=== PATIENT | female | born 1955 | race Caucasian/White ===

== ENCOUNTER → 2019-03-27 08:29 | Outpatient (CLI) | payer OTHER, SELFPAY ==
[2019-03-27 09:13] LABS: Add Manual Diff / Slide Review NO; Basophils Absolute Auto 100 /uL (0-100); Basophils Percent Auto 2.2 % (0-2); Eosinophils Absolute Auto 100 /uL (0-450); Eosinophils Percent Auto 4.1 % (2-4); Hematocrit 40.7 % (36-46); Hemoglobin 13.7 g/dL (12.0-16.0); Lymphocytes Absolute Auto 1800 /uL (1100-4500); Lymphocytes Percent Auto 52.7 % (25-40); Mean Corpuscular HGB Conc 33.6 % (30-36); Mean Corpuscular Hemoglobin 32.6 PG (26-34); Monocytes Absolute Auto 200 /uL (0-900); Monocytes Percent Auto 6.7 % (3-14); Neutrophils Absolute Auto 1100 /uL (1500-7000); Neutrophils Percent Auto 34.3 % (50-75); Platelet Count 250 X10^3/uL (150-400); Red Cell Distribution Width 14.3 % (11.6-14.8); White Blood Cell Count 3.3 X10^3/uL (4.5-11.0)
[2019-03-27 09:24] LABS: Hemoglobin A1C% w Est Avg Glu 5.2 % (4.0-6.0)
[2019-03-27 09:39] LABS: Alanine Aminotransferase 19 IU/L (9-52); Albumin 4.5 g/dL (3.5-5.0); Albumin Globulin Ratio 1.5 (1.0-2.8); Alkaline Phosphatase 78 U/L (38-126); Aspartate Aminotransferase 36 IU/L (14-36); BUN Creatinine Ratio 22.9 (6-22); Bilirubin Total 0.8 mg/dL (0.2-1.3); Blood Urea Nitrogen 16 mg/dL (7-17); Calcium 9.5 mg/dL (8.4-10.2); Carbon Dioxide 32 mmol/L (22-32); Chloride 102 mmol/L (98-107); Cholesterol 233 mg/dL (140-199); Estimated Glomerular Filt Rate > 60.0 mL/min (>60); Globulin 3.1 g/dL (1.7-4.1); Glucose 96 mg/dL (80-110); HDL Cholesterol 86 mg/dL (40-60); HEMOLYSIS < 15 (0-50); LDL Cholesterol Calculated 135 mg/dL (<100); Potassium 4.3 mmol/L (3.4-5.1); Sodium 139 mmol/L (137-145); Total Protein 7.6 g/dL (6.3-8.2); Triglycerides 59 mg/dL (35-150)
[2019-03-27 09:53] LABS: Vitamin D 25 Hydroxy (D3) 50.1 ng/mL (30.0-100.0)
[2019-03-27 10:12] LABS: Ferritin 33.1 ng/mL (11.1-264)
[2019-03-27 10:14] LABS: TSH w/ Reflex to FT4 2.76 uIU/mL (0.47-4.68)
== END ==
PROVIDERS: Visit Provider Internal Medicine
DX: Z13.220 Encounter for screening for lipoid disorders (principal); L65.9 Nonscarring hair loss, unspecified; Z87.42 Personal history of other diseases of the female genital tract; Z86.010 Personal history of colon polyps; M85.80 Other specified disorders of bone density and structure, unspecified site
CPT/HCPCS: 36415; 80053; 80061; 82306; 82728; 83036; 84443; 85025

== ENCOUNTER → 2020-01-21 08:00 | Outpatient (CLI) | payer MEDICARE, OTHER, SELFPAY ==
[2020-01-21 10:23] LABS: Add Manual Diff / Slide Review NO; Basophils Absolute Auto 100 /uL (0-100); Eosinophils Absolute Auto 300 /uL (0-450); Hematocrit 41.6 % (36-46); Lymphocytes Absolute Auto 1800 /uL (1100-4500); Lymphocytes Percent Auto 49.2 % (25-40); Mean Corpuscular HGB Conc 33.7 % (30-36); Mean Corpuscular Hemoglobin 32.6 PG (26-34); Mean Corpuscular Volume 96.8 fL (80-100); Monocytes Absolute Auto 200 /uL (0-900); Monocytes Percent Auto 6.4 % (3-14); Neutrophils Absolute Auto 1300 /uL (1500-7000); Neutrophils Percent Auto 35.4 % (50-75); Platelet Count 254 X10^3/uL (150-400); Red Cell Distribution Width 14.6 % (11.6-14.8); White Blood Cell Count 3.6 X10^3/uL (4.5-11.0)
[2020-01-21 10:44] LABS: Alanine Aminotransferase 26 IU/L (<35); Albumin 4.5 g/dL (3.5-5.0); Albumin Globulin Ratio 1.5 (1.0-2.8); Alkaline Phosphatase 89 U/L (38-126); Aspartate Aminotransferase 44 IU/L (14-36); BUN Creatinine Ratio 17.7 (6-22); Bilirubin Total 0.8 mg/dL (0.2-1.3); Blood Urea Nitrogen 11 mg/dL (7-17); Calcium 9.8 mg/dL (8.4-10.2); Carbon Dioxide 31 mmol/L (22-32); Chloride 103 mmol/L (98-107); Cholesterol 232 mg/dL (140-199); Estimated Glomerular Filt Rate > 60.0 mL/min (>60); Globulin 3.1 g/dL (1.7-4.1); Glucose 96 mg/dL (80-110); HDL Cholesterol 94 mg/dL (40-60); HEMOLYSIS < 15 (0-50); LDL Cholesterol Calculated 126 mg/dL (<100); Potassium 4.6 mmol/L (3.4-5.1); Sodium 140 mmol/L (137-145); Total Protein 7.6 g/dL (6.3-8.2); Triglycerides 58 mg/dL (35-150)
[2020-01-21 11:13] LABS: Thyroid Stimulating Hormone 1.26 uIU/mL (0.47-4.68)
== END ==
PROVIDERS: PCP Internal Medicine
DX: Z00.00 Encounter for general adult medical examination without abnormal findings (principal); R53.83 Other fatigue; M85.80 Other specified disorders of bone density and structure, unspecified site
CPT/HCPCS: 36415; 80053; 80061; 84443; 85025

== ENCOUNTER → 2020-01-28 08:16 | Outpatient (CLI) | payer MEDICARE, OTHER, SELFPAY ==
--- NOTE | 2020-01-28 | DI.MG.S_ITS ---
BILATERAL DIGITAL SCREENING MAMMOGRAM 3D/2D WITH CAD WITH AUGMENTATION: 01/28/2020 CLINICAL: Routine screening. Family history of breast cancer. Comparison is made to exams dated: [place] [facility] [place] [facility], and [place] [facility] [place] There are scattered fibroglandular elements in both breasts. Current study was also evaluated with a Computer Aided Detection (CAD) system. Bilateral breast implants are stable. No significant masses, calcifications, or other findings are seen in either breast. There has been no significant interval change. IMPRESSION: NEGATIVE There is no mammographic evidence of malignancy. A 1 year screening mammogram is recommended. This exam was interpreted at Station ID: [id number]. NOTE: For mammograms, a report in lay terms will be sent to the patient. Approximately 15% of breast malignancies will not be visualized mammographically. In the management of a palpable breast mass, a negative mammogram must not discourage biopsy of a clinically suspicious lesion. Electronically Signed By: Savannah dubois/sena:01/28/2020 09:04:53 copy to: CHRIS NOBLE JR, M.D. copy to: KRISTINA FIERRO letter sent: Normal Exam ACR BI-RADS Category 1: Negative 3341F
== END ==
PROVIDERS: PCP Internal Medicine; Referring Provider Family Medicine; Visit Provider Family Medicine
DX: Z12.31 Encounter for screening mammogram for malignant neoplasm of breast (principal); Z80.3 Family history of malignant neoplasm of breast
CPT/HCPCS: 77063; 77067

== ENCOUNTER → 2020-04-14 16:25 | Outpatient (CLI) | payer MEDICARE, OTHER, SELFPAY ==
[2020-04-14 17:31] LABS: BUN Creatinine Ratio 26.5 (6-22); Blood Urea Nitrogen 18 mg/dL (7-17); Carbon Dioxide 29 mmol/L (22-32); Chloride 102 mmol/L (98-107); Estimated Glomerular Filt Rate > 60.0 mL/min (>60); Glucose 104 mg/dL (80-110); HEMOLYSIS < 15 (0-50); Sodium 135 mmol/L (137-145)
[2020-04-14 17:45] LABS: Free T4, Direct Thyroxine 1.02 ng/dL (0.78-2.19)
[2020-04-14 17:59] LABS: Thyroid Stimulating Hormone 2.87 uIU/mL (0.47-4.68)
== END ==
PROVIDERS: PCP Internal Medicine; Referring Provider Physician Assistant; Visit Provider Physician Assistant
DX: R00.2 Palpitations (principal); I49.3 Ventricular premature depolarization
CPT/HCPCS: 36415; 80048; 83735; 84439; 84443

== ENCOUNTER → 2020-09-08 15:43 | Outpatient (CLI) | payer MEDICARE, OTHER, SELFPAY ==
[2020-09-08 17:12] LABS: Erythrocyte Sedimentation Rate 8 MM/HR (0-20)
[2020-09-08 17:41] LABS: Ferritin 42 ng/mL (11-264)
[2020-09-11 02:10] LABS: ANA Screen, IFA Negative (.)
== END ==
PROVIDERS: PCP Internal Medicine; Referring Provider Physician Assistant Medical; Visit Provider Physician Assistant Medical
DX: L65.9 Nonscarring hair loss, unspecified (principal)
CPT/HCPCS: 36415; 82728; 85651; 86038

== ENCOUNTER → 2020-09-15 14:52 | Outpatient (CLI) | payer MEDICARE, OTHER, SELFPAY ==
--- NOTE | 2020-09-15 14:53 | DI.ECHO.S_ITS ---
[place] [facility] +---------+ : : [address] [place] [address] : : : : [id number] : : : : Phone: [phone]---------+ Echocardiogram Report + + :Name: YOMI GRIFFITHS HStudy Date: 09/15/2020 Height: 67 in : :[facility] ReadingLocation: Weight: 125 lb : : Gender: Female BSA: 1.7 m2 : :: 1955 Age: 64 yrs BP: 128/62 mmHg: :Reason For Study: Palpitations : :Ordering Physician: CABRERA, : :MILLY Griffith Performed By: Holger Candelario : :Referring: MILLY REES : + + Interpretation Summary The ejection fraction is estimated to be 60-65%. There is no significant valvular heart disease. Procedure: A two-dimensional transthoracic echocardiogram with color flow and Doppler was performed. The study quality was technically adequate. There is no prior echocardiogram noted for this patient. The patient was in sinus rhythm with heart rates between 73-88 bpm during the exam. Left Ventricle: The left ventricle is normal in size and wall thickness. Left ventricular systolic function is normal. The ejection fraction is estimated to be 60-65%. There are no focal wall motion abnormalities. Diastolic function could not be accurately assessed due to contradictory data. Right Ventricle: The right ventricle is normal in size and function. Atria: Both atria are normal in size. There is no Doppler evidence for an interatrial shunt. Mitral Valve: The mitral valve is normal in structure but abnormal in function. There is no mitral regurgitation noted. Aortic Valve: The aortic valve is grossly normal. No aortic regurgitation is present. Tricuspid Valve: The tricuspid valve is normal in structure and function. There is trace tricuspid regurgitation. Pulmonary artery pressures cannot be estimated because of the lack of a measurable TR jet velocity but the IVC suggests a CVP of around 3 mmHg. Pulmonic Valve: The pulmonic valve is not well visualized. There is no pulmonic valvular regurgitation. Great Vessels: The aortic root is normal size. The ascending aorta could not be visualized. The IVC is of normal diameter and collapses greater than 50% with a sniff. This suggests a low right atrial pressure of 3 mm Hg. Pericardium/ Pleura There is no pericardial effusion. There is no pleural effusion. MMode/2D Measurements & Calculations LVIDd: 4.3 cm LVOT diam: 1.8 cm LVIDs: 3.0 cm Ao root diam: 2.6 cm FS: 30.7 % IVSd: 0.69 cm LVPWd: 0.58 cm LV smith. diameter/BSA (cm/m^2): 2.6 LV sys. diameter/BSA (cm/m^2): 1.8 LA A2 area: 10.6 cm2 RA long axis: 3.2 cm LA A4 area: 10.8 cm2 RA area: 9.3 cm2 LA length (vol): 3.8 cm RA vol: 23.2 ml LA vol: 25.8 ml RA : 14.0 ml/m2 LA vol index: 15.6 ml/m2 RVD1 (basal): 2.5 cm TAPSE: 2.0 cm Doppler Measurements & Calculations Ao V2 max: 158.2 cm/sec LVOT Max Shahab: 160.1 cm/sec Ao V2 mean: 110.8 cm/sec LV V1 max P.2 mmHg Ao max P.0 mmHg LV V1 VTI: 28.2 cm Ao mean P.5 mmHg ALAN(I,D): 2.4 cm2 Ao V2 VTI: 29.1 cm ALAN(V,D): 2.5 cm2 sev ratio: 0.97 ALAN indexed to BSA (cm^2/m^2): 1.5 MV E max shahab: 90.2 cm/sec TR max shahab: 257.7 cm/sec MV A max shahab: 84.8 cm/sec TR max P.8 mmHg MV E/A: 1.1 PA V2 max: 125.0 cm/sec Med Peak E' Shahab: 6.5 cm/sec PA V2 mean: 83.4 cm/sec E/E' med: 13.8 PA mean P.2 mmHg Lat Peak E' Shahab: 9.3 cm/sec PA pr(Accel): 36.4 mmHg E/E' lat: 9.7 E/e' average: 11.8 MV dec time: 0.14 sec SV(LVOT): 70.0 ml Reading Physician:12:55 PM
== END ==
PROVIDERS: PCP Internal Medicine; Referring Provider Physician Assistant; Visit Provider Physician Assistant
DX: R00.2 Palpitations (principal)
CPT/HCPCS: 93306

== ENCOUNTER → 2020-09-26 10:55 | Outpatient (CLI) | payer MEDICARE, OTHER, SELFPAY ==
[2020-09-26 12:58] LABS: COVID19 -Nasal RAPID Negative (Negative)
== END ==
PROVIDERS: PCP Internal Medicine; Visit Provider Student in an Organized Health Care Education/Training Program
DX: Z20.822 Contact with and (suspected) exposure to COVID-19 (principal)
CPT/HCPCS: 87635; C9803

== ENCOUNTER 2020-09-28 08:56 | Day surgery (SDC) | payer MEDICARE, OTHER, SELFPAY ==
--- NOTE | 2020-09-28 | PATH_ITS ---
[facility] Accession Number: [id number] . 01 Material submitted: . PART A: colon - ASCENDING COLON POLYP PART B: colon - CECAL POLYP . 01 Clinical history: . SCREENING COLONOSCOPY . 02 Diagnosis: A. Ascending Colon, Polyp, Biopsy: Tubulovillous adenoma. No evidence of malignancy or high-grade dysplasia. . B. Cecum, Polyp, Biopsy: Sessile serrated adenoma. MRV 10/04/2020 1152 Local . 02 Electronically signed: . Kellee Fuller MD, Pathologist NPI- [id number] . 01 Gross description: . Part A: ASCENDING COLON POLYP: Received in formalin are multiple fragment(s) of davis, soft tissue measuring 0.1 x 0.1 x 0.1 cm to 0.8 x 0.7 x 0.7 cm submitted entirely in 1 cassette(s) Part B: CECAL POLYP: Received in formalin is 1 fragment(s) of davis, soft tissue measuring 0.7 x 0.4 x 0.3 cm submitted entirely in 1 cassette(s) /NAIDA 09/29/2020 1841 Local . 02 Pathologist provided ICD-10: D12.0, D12.2 . 02 CPT . 074920, 527209 Performed at: 01 [facility] [address], [place], [place] [id number] MD Wu De La Cruz MD Phone: [phone] Performed at: 02 [facility] [address] [place], [place] [id number] MD Kellee Fuller MD Phone: [phone]
--- NOTE | 2020-09-28 08:07 | P.HP_ITS ---
History of Present Illness History of Present Illness Date Patient Seen: 09/28/20 Chief complaint: SCREENING COLONOSCOPY Narrative: 65-year-old female here for polyp surveillance Patient History Family & Social History Tobacco & Substance use: Smoking Status Former smoker Meds Home Medications and Allergies Home Medications Medication Instructions Recorded Confirmed Type nirmala root extract 300 mg PO DAILY 09/28/20 09/28/20 History cholecalciferol (vitamin D3) 50 mcg PO DAILY 09/28/20 09/28/20 History [Vitamin D3] famotidine 20 mg PO PRN PRN 09/28/20 09/28/20 History multivitamin 1 tab PO DAILY 09/28/20 09/28/20 History naproxen sodium [Aleve] 220 mg PO BID PRN 09/28/20 09/28/20 History Allergies Allergy/AdvReac Type Severity Reaction Status Date / Time Sulfa (Sulfonamide Allergy Severe Rash Verified 03/31/18 14:45 Antibiotics) Exam Narrative Exam Narrative: General: Patient is well developed, not in apparent distress Cardiovascular: Regular rate and rhythm, no murmurs, rubs, or gallops; no anne dence of edema; no palpable abdominal aortic aneurysm Gastrointestinal: Normoactive bowel sounds, soft, nontender, nondistended, no rebound tenderness, no hepatosplenomegaly, no evidence of hernia Assessment & Plan Assessment & Plan narrative: 65-year-old female here for polyp surveillance Regarding the procedure(s), the risks and potential complications, benefits, and alternatives (including not doing the procedure) were discussed with the patient. The risks include but are not limited to bleeding, splenic injury, inf ection, perforation which may require surgical intervention, missed lesions, and adverse reactions to sedative medicines. After a question and answer period, the patient agreed to proceed with the procedure(s) and gives informed consent.
--- NOTE | 2020-09-28 08:09 | PM.HP.1 ---
History of Present Illness History of Present Illness Date Patient Seen: 09/28/20 Chief complaint: SCREENING COLONOSCOPY Narrative: 65-year-old female here for polyp surveillance Patient History Family & Social History Tobacco & Substance use: Smoking Status Former smoker Meds Home Medications and Allergies Home Medications Medication Instructions Recorded Confirmed Type gabapentin 100 mg capsule 100 mg PO Q8H #30 cap 03/30/18 12/24/18 Rx methocarbamol 500 mg tablet 500 mg PO QID PRN #10 tab 12/24/18 Rx Allergies Allergy/AdvReac Type Severity Reaction Status Date / Time Sulfa (Sulfonamide Allergy Severe Rash Verified 03/31/18 14:45 Antibiotics)
[2020-09-28 09:22] VITALS: BMI 19.3
[2020-09-28 09:27] VITALS: BP 125/78; PULSE 108; RESP 16; TEMP 36.5; O2SAT 98
[2020-09-28] MEDS: SODIUM CHLORIDE 0.9% 1,000 ML 70 ML IV (09:31)
[2020-09-28] MEDS: fentaNYL 250 MCG/5 ML INJ IV (10:00)
[2020-09-28] MEDS: MIDAZOLAM 5 MG/5 ML VIAL IV (10:01)
--- NOTE | 2020-09-28 10:27 | P.OP.ENDO_ITS ---
Operative Date/Time/Diagnoses Date of procedure: 09/28/20 Procedure Notes Procedure in detail: Surgeon: Manolo Ballesteros MD Procedure: Colonoscopy with polypectomy Preoperative diagnosis: Colon polyp surveillance Postoperative diagnosis: Colon polyps x2 status post polypectomy, grade 1 internal hemorrhoids Medications: Conscious sedation using 5 mg IV of Midazolam and 150 mcg IV of Fentanyl Preanesthesia Assessment An H and P was performed/updated and the Px?s ASA class is 2. The procedure was discussed in detail with the patient. The potential risks and complications including infection, bleeding, missed lesions, perforation, need for surgery in case of perforation, prolonged hospital stay, and were explained. A brief question and answer period was allotted and once all questions were answered, informed consent was obtained. The patient was brought back to the procedure room and placed on standard monitoring. The patient?s vital signs were monitored continuously throughout the entire procedure. Prior to starting, a timeout was performed to confirm the patient?s identity, allergies, medications, and procedure. Procedure in detail The patient was placed in left lateral decubitus position and once adequate sedation was obtained a CRUZITO was performed. The digital rectal examination did not reveal any palpable lesions. The tip of the colonoscope was placed in the anal canal and advanced with some difficulty in the left due to significant looping and fixation of the colon. This was rectified by manual pressure and shortening of the scope. The colonoscope was then advanced all the way to the cecum which was identified by the appendiceal orifice and the ileocecal valve. Careful examination of all jorgensen of the colon was performed with irrigation of any residual stool. In the cecum, a 4 mm polyp was removed by means of cold snare. Resection ret rieval was complete with minimal bleeding In the ascending colon, a 10 mm polyp was removed by means cold snare. Resection and retrieval was complete with minimal bleeding Retroflexion was performed in the rectum which revealed grade 1 internal hemorrhoids The patient tolerated the procedure well and will be brought back to the recovery area to be discharged once criteria are met. The prep was judged to be good and adequate to identify polyps less than 5 mm. The withdrawal time was 15 minutes. The total physician intraservice time was 27 minutes. Complications There were no complications and estimated blood loss was minimal. Recommendations: Resume previous diet Continue outPx medications Follow up pathology results Repeat colonoscopy in 3 or 5 years depending on pathology results; this procedure will need to be done with anesthesia assistance An emergency contact number was given to the patient for any complications related to the procedure
[2020-09-28 10:31] VITALS: BP 103/60; PULSE 80; RESP 16; TEMP 36.2; O2SAT 100
[2020-09-28 10:36] VITALS: BP 108/66; PULSE 85; RESP 12; TEMP 37.2; O2SAT 100
[2020-09-28 10:41] VITALS: BP 104/67; PULSE 78; RESP 12; TEMP 37; O2SAT 100
== END 2020-09-28 10:55 | disposition home or self-care (01) ==
PROVIDERS: PCP Internal Medicine; Referring Provider Internal Medicine Gastroenterology; Visit Provider Internal Medicine Gastroenterology
PROC: 0DJD8ZZ Inspection of Lower Intestinal Tract, Via Natural or Artificial Opening Endoscopic (ICD-10-PCS; CPT 45378; principal; 2020-09-28 10:00)
DX: Z12.11 Encounter for screening for malignant neoplasm of colon (principal); Z86.010 Personal history of colon polyps; K64.0 First degree hemorrhoids; D12.0 Benign neoplasm of cecum; D12.2 Benign neoplasm of ascending colon
CPT/HCPCS: 45385; J2250; J3010

== ENCOUNTER → 2021-02-22 16:21 | Outpatient (CLI) | payer MEDICARE, OTHER, SELFPAY ==
[2021-02-22 18:21] LABS: Ferritin 72 ng/mL (11-264)
== END ==
PROVIDERS: PCP Internal Medicine; Referring Provider Physician Assistant Medical; Visit Provider Physician Assistant Medical
DX: L65.9 Nonscarring hair loss, unspecified (principal)
CPT/HCPCS: 36415; 82728

== ENCOUNTER → 2021-04-01 10:58 | Outpatient (CLI) | payer MEDICARE, OTHER, SELFPAY ==
[2021-04-01 11:54] LABS: Basophils Percent Auto 1.8 % (0-2); Eosinophils Percent Auto 3.2 % (2-4); Hematocrit 41.1 % (36-46); Hemoglobin 14.1 g/dL (12.0-16.0); Lymphocytes Percent Auto 46.9 % (25-40); Mean Corpuscular HGB Conc 34.3 % (30-36); Mean Corpuscular Hemoglobin 33.1 PG (26-34); Mean Corpuscular Volume 96.4 fL (80-100); Monocytes Percent Auto 7.7 % (3-14); Neutrophils Percent Auto 40.4 % (50-75); Platelet Count 228 X10^3/uL (150-400); Red Blood Cell Count 4.27 X10^6/uL (4.0-5.2); Red Cell Distribution Width 13.8 % (11.6-14.8)
[2021-04-01 11:55] LABS: Add Manual Diff / Slide Review NO; Basophils Absolute Auto 100 /uL (0-100); Eosinophils Absolute Auto 100 /uL (0-450); Lymphocytes Absolute Auto 1900 /uL (1100-4500); Monocytes Absolute Auto 300 /uL (0-900); Neutrophils Absolute Auto 1600 /uL (1500-7000)
== END ==
PROVIDERS: PCP Internal Medicine; Referring Provider Family Medicine; Visit Provider Family Medicine
DX: R89.9 Unspecified abnormal finding in specimens from other organs, systems and tissues (principal)
CPT/HCPCS: 36415; 85025

== ENCOUNTER → 2021-04-13 10:11 | Outpatient (CLI) | payer MEDICARE, OTHER, SELFPAY ==
--- NOTE | 2021-04-13 | DI.MG.S_ITS ---
BILATERAL DIGITAL SCREENING MAMMOGRAM 3D/2D WITH CAD WITH AUGMENTATION: 04/13/2021 CLINICAL: Routine screening. Comparison is made to exams dated: 01/28/2020 mammogram - [facility], 09/17/2018 mammogram - [facility], and 05/14/2017 mammogram - [facility]. There are scattered fibroglandular elements in both breasts. Current study was also evaluated with a Computer Aided Detection (CAD) system. Bilateral breast implants are stable. No significant masses, calcifications, or other findings are seen in either breast. There has been no significant interval change. IMPRESSION: NEGATIVE There is no mammographic evidence of malignancy. A 1 year screening mammogram is recommended. This exam was interpreted at Station ID: [id number]. NOTE: For mammograms, a report in lay terms will be sent to the patient. Approximately 15% of breast malignancies will not be visualized mammographically. In the management of a palpable breast mass, a negative mammogram must not discourage biopsy of a clinically suspicious lesion. Electronically Signed By: Michael martinez/sena:04/13/2021 10:38:08 copy to: CHRIS NOBLE JR, M.D. copy to: KRISTINA FIERRO letter sent: Normal Exam ACR BI-RADS Category 1: Negative 3341F
== END ==
PROVIDERS: PCP Internal Medicine; Referring Provider Internal Medicine; Visit Provider Internal Medicine
DX: Z12.31 Encounter for screening mammogram for malignant neoplasm of breast (principal)
CPT/HCPCS: 77063; 77067

== ENCOUNTER → 2021-06-08 14:52 | Outpatient (CLI) | payer MEDICARE, OTHER, SELFPAY ==
[2021-06-08 16:34] LABS: Ferritin 66 ng/mL (11-264)
== END ==
PROVIDERS: PCP Internal Medicine; Referring Provider Physician Assistant Medical; Visit Provider Physician Assistant Medical
DX: L65.9 Nonscarring hair loss, unspecified (principal)
CPT/HCPCS: 36415; 82728

== ENCOUNTER → 2021-09-26 15:52 | Outpatient (CLI) | payer MEDICARE, OTHER, SELFPAY ==
[2021-09-26 18:30] LABS: Ferritin 113 ng/mL (11-264)
== END ==
PROVIDERS: PCP Internal Medicine; Referring Provider Physician Assistant Medical; Visit Provider Physician Assistant Medical
DX: L65.9 Nonscarring hair loss, unspecified (principal)
CPT/HCPCS: 36415; 82728

== ENCOUNTER → 2022-01-10 15:40 | Outpatient (CLI) | payer MEDICARE, OTHER, SELFPAY ==
[2022-01-10 17:30] LABS: Erythrocyte Sedimentation Rate 5 MM/HR (0-20)
[2022-01-10 18:03] LABS: Ferritin 83 ng/mL (11-264)
== END ==
PROVIDERS: PCP Internal Medicine; Referring Provider Physician Assistant Medical; Visit Provider Physician Assistant Medical
DX: L65.9 Nonscarring hair loss, unspecified (principal)
CPT/HCPCS: 36415; 82728; 85651

== ENCOUNTER → 2022-04-13 15:53 | Outpatient (CLI) | payer MEDICARE, OTHER, SELFPAY ==
[2022-04-13 19:28] LABS: Ferritin 93 ng/mL (11-264)
== END ==
PROVIDERS: PCP Internal Medicine; Referring Provider Physician Assistant Medical; Visit Provider Physician Assistant Medical
DX: L65.9 Nonscarring hair loss, unspecified (principal); L57.8 Other skin changes due to chronic exposure to nonionizing radiation; L57.0 Actinic keratosis
CPT/HCPCS: 36415; 82728

== ENCOUNTER → 2022-07-07 07:55 | Outpatient (CLI) | payer MEDICARE, OTHER, SELFPAY ==
[2022-07-07 08:58] LABS: Erythrocyte Sedimentation Rate 5 MM/HR (0-20)
[2022-07-07 09:24] LABS: Ferritin 78 ng/mL (11-264)
== END ==
PROVIDERS: PCP Internal Medicine; Referring Provider Physician Assistant Medical; Visit Provider Physician Assistant Medical
DX: L65.9 Nonscarring hair loss, unspecified (principal)
CPT/HCPCS: 36415; 82728; 85651

== ENCOUNTER → 2022-10-25 15:49 | Outpatient (CLI) | payer MEDICARE, OTHER, SELFPAY ==
--- NOTE | 2022-10-25 15:53 | DI.RAD.S_ITS ---
PROCEDURE: XR CHEST 2V INDICATIONS: cough x 1.5 weeks, adventitious LS bases, R upper lobe TECHNIQUE: 2 views of the chest were acquired. COMPARISON: None. FINDINGS: Surgical changes and devices: None. Lungs and pleura: Lungs are clear. No pleural effusions or pneumothorax. Mediastinum: Mediastinal contours are normal. Heart size is normal. Bones and chest wall: No suspicious bony abnormalities. Calcified left breast implant. IMPRESSION: No evidence acute pulmonary process. Dictated by: Alvaro Mccall M.D. on 10/25/2022 at 16:19 Approved by: Alvaro Mccall M.D. on 10/25/2022 at 16:19
== END ==
PROVIDERS: PCP Internal Medicine; Referring Provider Student in an Organized Health Care Education/Training Program; Visit Provider Student in an Organized Health Care Education/Training Program
DX: R05.9 Cough, unspecified (principal)
CPT/HCPCS: 71046

== ENCOUNTER → 2023-01-14 16:55 | Outpatient (CLI) | payer MEDICARE, OTHER, SELFPAY ==
[2023-01-14 18:56] LABS: Ferritin 78 ng/mL (11-264)
== END ==
PROVIDERS: PCP Internal Medicine; Referring Provider Physician Assistant Medical; Visit Provider Physician Assistant Medical
DX: L65.9 Nonscarring hair loss, unspecified (principal)
CPT/HCPCS: 36415; 82728